=== PATIENT | male | born 1955 | race Caucasian/White ===

== ENCOUNTER 2021-08-05 18:38 | Inpatient (IN) | payer MEDICARE, OTHER ==
[~2021-08-05] VITALS: Ht 193 cm; Wt 108.0 kg
[2021-08-05] MEDS ORDERED: ONDANSETRON HCL INJ 2MG/ML 2ML 2 MG/ML VIAL IV PRN (20:45)
[2021-08-05] MEDS ORDERED: Morphine 4mg Syringe 4 MG/ML INJ IV PRN (20:45)
[2021-08-05] MEDS: ENOXAPARIN SODIUM INJ 100 MG/ML SYR SC SCH (21:00)
[2021-08-05 21:58] LABS: BASOPHILS % 0.3 % (0.0-1.0); EOSINOPHILS # (AUTO) 0.1 (0.0-0.4); EOSINOPHILS % 1.3 % (0.0-6.0); HEMATOCRIT 35.8 % (38.2-49.6); HEMOGLOBIN 11.4 g/dL (14.0-18.0); LYMPHOCYTES # (AUTO) 1.2 (1.0-3.2); LYMPHOCYTES % 14.6 % (18.0-39.1); MEAN CORPUSCULAR HEMOGLOBIN 30.4 pg (28-32); MEAN CORPUSCULAR HGB CONC 31.8 g/dL (31-35); MEAN CORPUSCULAR VOLUME 95.5 fL (81-99); MONOCYTES # (AUTO) 0.7 (0.2-0.8); MONOCYTES % 8.3 % (4.4-11.3); NEUTROPHILS # (AUTO) 5.9 (2.1-6.9); NEUTROPHILS % 75.2 % (38.7-80.0); PLATELET COUNT 156 x10e3/uL (140-360); RED BLOOD COUNT 3.75 x10e6/uL (4.3-5.7); RED CELL DISTRIBUTION WIDTH 13.1 % (11.7-14.4)
[2021-08-05 22:15] LABS: INR 1.05; PROTHROMBIN TIME 14.6 seconds (11.9-14.5)
[2021-08-05 22:20] LABS: ALBUMIN 3.4 g/dL (3.5-5.0); ALBUMIN/GLOBULIN RATIO 0.9 (0.8-2.0); ANION GAP 13.3 mmol/L (8-16); CALCIUM 8.9 mg/dL (8.4-10.2); CREATININE, SERUM 0.72 mg/dL (0.72-1.25); POTASSIUM 3.3 mmol/L (3.5-5.1)
[2021-08-06] VITALS (8 sets, daily range): BP systolic 94–145; BP diastolic 68–91
[2021-08-06 06:31] LABS: BASOPHILS % 0.4 % (0.0-1.0); EOSINOPHILS # (AUTO) 0.1 (0.0-0.4); EOSINOPHILS % 2.3 % (0.0-6.0); HEMATOCRIT 34.5 % (38.2-49.6); HEMOGLOBIN 10.9 g/dL (14.0-18.0); LYMPHOCYTES # (AUTO) 1.2 (1.0-3.2); LYMPHOCYTES % 20.4 % (18.0-39.1); MEAN CORPUSCULAR HEMOGLOBIN 30.3 pg (28-32); MEAN CORPUSCULAR HGB CONC 31.6 g/dL (31-35); MEAN CORPUSCULAR VOLUME 95.8 fL (81-99); MONOCYTES # (AUTO) 0.6 (0.2-0.8); MONOCYTES % 10.1 % (4.4-11.3); NEUTROPHILS # (AUTO) 3.8 (2.1-6.9); NEUTROPHILS % 66.3 % (38.7-80.0); PLATELET COUNT 139 x10e3/uL (140-360); RED CELL DISTRIBUTION WIDTH 12.9 % (11.7-14.4)
[2021-08-06 06:48] LABS: ANION GAP 13.2 mmol/L (8-16); CALCIUM 8.2 mg/dL (8.4-10.2); CREATININE, SERUM 0.66 mg/dL (0.72-1.25); POTASSIUM 3.2 mmol/L (3.5-5.1)
[2021-08-06] MEDS ORDERED: RYTARY ER 61.21 EACH PO (06:49)
[2021-08-06] MEDS ORDERED: ACETAMINOPHEN/CODEINE 300MG - 30MG TAB PO PRN (09:00)
[2021-08-06] MEDS ORDERED: POTASSIUM CHLORIDE 20 MEQ TAB CR PO ONE (09:00)
[2021-08-06] MEDS ORDERED: ACETAMINOPHEN 325 MG TAB PO PRN (09:00)
[2021-08-06] MEDS: ENOXAPARIN SODIUM INJ 100 MG/ML SYR SC SCH (09:04)
[2021-08-06] MEDS ORDERED: AMLODIPINE BESY10 MG PO (09:18)
[2021-08-06] MEDS ORDERED: FLOMAX0.4 MG PO (09:18)
[2021-08-06] MEDS ORDERED: NUPLAZID34 MG PO (09:18)
[2021-08-06] MEDS ORDERED: LOSARTAN POTAS100 MG PO (09:18)
[2021-08-06] MEDS ORDERED: FOLIC ACID0.4 MG PO (09:18)
[2021-08-06 09:21] LABS: % IRON SATURATION 17 % (15-50); IRON 36 ug/dL (65-175); TOTAL IRON BINDING CAPACITY 207 ug/dL (261-478); TRANSFERRIN 148 mg/dL (174-364)
[2021-08-06] MEDS: RYTARY PO SCH ×4 (11:00→22:21)
[2021-08-06] MEDS: IRON SUCROSE 100 MG in SODIUM CHLORIDE 0.9% 100 ML 100 ML IV SCH (12:25)
[2021-08-06] MEDS: APIXABAN 5 MG TABLET PO SCH (17:36)
[2021-08-07] VITALS (9 sets, daily range): BP systolic 93–157; BP diastolic 63–84
[2021-08-07] MEDS: RYTARY PO SCH ×5 (05:33→20:09)
[2021-08-07 05:37] LABS: BASOPHILS % 0.5 % (0.0-1.0); EOSINOPHILS # (AUTO) 0.1 (0.0-0.4); EOSINOPHILS % 2.3 % (0.0-6.0); HEMATOCRIT 33.2 % (38.2-49.6); HEMOGLOBIN 10.5 g/dL (14.0-18.0); MEAN CORPUSCULAR HEMOGLOBIN 30.9 pg (28-32); MEAN CORPUSCULAR HGB CONC 31.6 g/dL (31-35); MEAN CORPUSCULAR VOLUME 97.6 fL (81-99); MONOCYTES # (AUTO) 0.5 (0.2-0.8); NEUTROPHILS # (AUTO) 4.3 (2.1-6.9); NEUTROPHILS % 71.9 % (38.7-80.0); PLATELET COUNT 137 x10e3/uL (140-360); RED CELL DISTRIBUTION WIDTH 13.1 % (11.7-14.4)
[2021-08-07 05:52] LABS: ANION GAP 10.3 mmol/L (8-16); CALCIUM 8.2 mg/dL (8.4-10.2); CREATININE, SERUM 0.61 mg/dL (0.72-1.25); POTASSIUM 3.3 mmol/L (3.5-5.1)
[2021-08-07] MEDS: APIXABAN 5 MG TABLET PO SCH ×2 (09:35→17:09)
[2021-08-07] MEDS: TAMSULOSIN HCL 0.4 MG CAP PO SCH (09:35)
[2021-08-07] MEDS: FOLIC ACID 1 MG TAB PO SCH (09:36)
[2021-08-07] MEDS: IRON SUCROSE 100 MG in SODIUM CHLORIDE 0.9% 100 ML 100 ML IV SCH (09:45)
[2021-08-07] MEDS ORDERED: SODIUM CHLORIDE 0.9% 250ML 250 ML ONE (09:51)
[2021-08-07] MEDS ORDERED: ONDANSETRON HCL 4 MG ORAL DISINTEGRATING TAB PO PRN (11:00)
[2021-08-07] MEDS ORDERED: POTASSIUM CHLORIDE 10MEQ EA PO ONE (11:30)
[2021-08-07] MEDS: LOSARTAN POTASSIUM 100 MG TAB PO SCH (12:51)
[2021-08-07] MEDS: AMLODIPINE BESYLATE 10 MG TAB PO SCH (12:51)
[2021-08-07] MEDS ORDERED: LORAZEPAM 1 MG TAB PO PRN (16:15)
[2021-08-07] MEDS ORDERED: BALSAM PERU/CASTOR OIL 60 GM OINT...G. TP PRN (17:30)
[2021-08-07] MEDS ORDERED: QUETIAPINE FUMARATE 25 MG TAB PO PRN (18:00)
[2021-08-08] VITALS (10 sets, daily range): BP systolic 116–141; BP diastolic 70–88
[2021-08-08] MEDS: RYTARY PO SCH ×5 (05:36→21:11)
[2021-08-08] MEDS: FOLIC ACID 1 MG TAB PO SCH (08:34)
[2021-08-08] MEDS: APIXABAN 5 MG TABLET PO SCH ×2 (08:34→16:20)
[2021-08-08] MEDS: TAMSULOSIN HCL 0.4 MG CAP PO SCH (08:35)
[2021-08-08] MEDS: LOSARTAN POTASSIUM 100 MG TAB PO SCH (08:35)
[2021-08-08] MEDS: AMLODIPINE BESYLATE 10 MG TAB PO SCH (08:36)
[2021-08-08] MEDS: COLLAGENASE 5 GM TUBE TP SCH (08:41)
[2021-08-08] MEDS ORDERED: ELIQUIS5 MG PO (11:53)
[2021-08-08] MEDS ORDERED: NALOXONE HCL INJ 0.4 MG/ML AMP IV PRN (13:00)
[2021-08-08] MEDS ORDERED: NALOXONE HCL INJ 0.4 MG/ML AMP ONE (13:04)
[2021-08-08] MEDS ORDERED: LACTATED RINGER'S 1,000 ML INJ ONE (13:30)
[2021-08-09 04:00] VITALS: BP 131/89
[2021-08-09] MEDS: RYTARY PO SCH ×2 (05:28→08:22)
[2021-08-09 08:00] VITALS: BP 120/77
[2021-08-09 08:15] VITALS: BP 120/77
[2021-08-09] MEDS: APIXABAN 5 MG TABLET PO SCH (08:22)
[2021-08-09] MEDS: LOSARTAN POTASSIUM 100 MG TAB PO SCH (08:22)
[2021-08-09] MEDS: COLLAGENASE 5 GM TUBE TP SCH (08:22)
[2021-08-09] MEDS: AMLODIPINE BESYLATE 10 MG TAB PO SCH (08:22)
[2021-08-09] MEDS: TAMSULOSIN HCL 0.4 MG CAP PO SCH (08:22)
[2021-08-09] MEDS: FOLIC ACID 1 MG TAB PO SCH (08:22)
[2021-08-09 11:00] VITALS: BP 86/43
[2021-08-09] MEDS ORDERED: ELIQUIS5 MG PO (11:10)
== END 2021-08-09 13:26 | disposition home health service (06) | DRG 300 ==
LOC: ER 18:42 → ERHOLD 20:55 → MED/SURG 23:36
PROVIDERS: ADMIT Internal Medicine; ATTEND Internal Medicine
DX: I82.412 Acute embolism and thrombosis of left femoral vein (principal); L97.429 Non-pressure chronic ulcer of left heel and midfoot with unspecified severity; G20 Parkinson's disease; I10 Essential (primary) hypertension; N40.0 Benign prostatic hyperplasia without lower urinary tract symptoms; E87.6 Hypokalemia; G40.909 Epilepsy, unspecified, not intractable, without status epilepticus; F31.9 Bipolar disorder, unspecified; Z96.82 Presence of neurostimulator; Z88.5 Allergy status to narcotic agent; Z88.0 Allergy status to penicillin; Z20.822 Contact with and (suspected) exposure to COVID-19; L98.499 Non-pressure chronic ulcer of skin of other sites with unspecified severity
CPT/HCPCS: 36415; 80048; 80053; 83540; 83735; 84132; 84466; 85025; 85610; 93005; 93971; 94799; 97139; 99251; 99284; J1650; J1756; J2270; J2310; J2405; J7050; J7121; U0002

== ENCOUNTER 2021-08-18 13:08 | Inpatient (IN) | payer MEDICARE, OTHER ==
[~2021-08-18] VITALS: Ht 375.9 cm; Wt 108.0 kg
[~2021-08-18 13:08] MED LIST: AMLODIPINE BESY10 MG PO; ELIQUIS5 MG PO; FLOMAX0.4 MG PO; FOLIC ACID0.4 MG PO; LOSARTAN POTAS100 MG PO; NUPLAZID34 MG PO; RYTARY ER 61.21 EACH PO
[2021-08-18 14:00] LABS: BASOPHILS % 0.4 % (0.0-1.0); EOSINOPHILS % 0.4 % (0.0-6.0); HEMATOCRIT 38.3 % (38.2-49.6); HEMOGLOBIN 12.1 g/dL (14.0-18.0); LYMPHOCYTES # (AUTO) 0.9 (1.0-3.2); MEAN CORPUSCULAR HEMOGLOBIN 30.6 pg (28-32); MEAN CORPUSCULAR HGB CONC 31.6 g/dL (31-35); MEAN CORPUSCULAR VOLUME 96.7 fL (81-99); MONOCYTES # (AUTO) 0.8 (0.2-0.8); MONOCYTES % 6.7 % (4.4-11.3); NEUTROPHILS # (AUTO) 9.5 (2.1-6.9); NEUTROPHILS % 84.1 % (38.7-80.0); PLATELET COUNT 268 x10e3/uL (140-360); RED BLOOD COUNT 3.96 x10e6/uL (4.3-5.7); RED CELL DISTRIBUTION WIDTH 13.1 % (11.7-14.4)
[2021-08-18 14:17] LABS: INR 1.26; PARTIAL THROMBOPLASTIN TIME 32.9 seconds (23.8-35.5); PROTHROMBIN TIME 16.9 seconds (11.9-14.5)
[2021-08-18 14:21] LABS: ALANINE AMINOTRANSFERASE < 6 IU/L (0-55); ALBUMIN 3.1 g/dL (3.5-5.0); ALBUMIN/GLOBULIN RATIO 0.7 (0.8-2.0); ALKALINE PHOSPHATASE 109 IU/L (40-150); ANION GAP 14.5 mmol/L (8-16); BLOOD UREA NITROGEN 17 mg/dL (7-26); BUN/CREATININE RATIO 19 (6-25); CALCIUM 8.6 mg/dL (8.4-10.2); CARBON DIOXIDE 25 mmol/L (22-29); CHLORIDE 101 mmol/L (98-107); CREATININE, SERUM 0.91 mg/dL (0.72-1.25); GLUCOSE 160 mg/dL (74-118); POTASSIUM 3.5 mmol/L (3.5-5.1); SODIUM 137 mmol/L (136-145)
[2021-08-18] MEDS: HYDROCODONE/APAP 5MG-325MG TAB PO PRN (14:39)
[2021-08-18] MEDS ORDERED: SODIUM CHLORIDE FLUSH 10 ML SYR INJ PRN (17:15)
[2021-08-18] MEDS ORDERED: ONDANSETRON HCL INJ 2MG/ML 2ML 2 MG/ML VIAL IV PRN (17:15)
[2021-08-18] MEDS ORDERED: IOPAMIDOL 370 MG/ML 100 ML INFUS..BTL INJ ONE (17:24)
[2021-08-18] MEDS ORDERED: SODIUM CHLORIDE 0.9% 500ML 500 ML IV ONE (18:45)
[2021-08-18] MEDS ORDERED: ACETAMINOPHEN 325 MG TAB PO PRN (18:45)
[2021-08-18 21:00] VITALS: BP 108/68
[2021-08-18 21:21] VITALS: BP 108/68
[2021-08-18 22:00] VITALS: BP 108/68
[2021-08-18] MEDS: RYTARY PO SCH (22:29)
[2021-08-18] MEDS: APIXABAN 5 MG TABLET PO SCH (22:29)
[2021-08-19] VITALS (7 sets, daily range): BP systolic 86–108; BP diastolic 51–74
[2021-08-19] MEDS: SODIUM CHLORIDE 0.9% 1000ML 1,000 ML IV SCH ×2 (00:42→12:47)
[2021-08-19 05:26] LABS: BASOPHILS % 0.4 % (0.0-1.0); EOSINOPHILS # (AUTO) 0.1 (0.0-0.4); EOSINOPHILS % 1.1 % (0.0-6.0); HEMATOCRIT 33.5 % (38.2-49.6); HEMOGLOBIN 10.8 g/dL (14.0-18.0); LYMPHOCYTES # (AUTO) 1.3 (1.0-3.2); LYMPHOCYTES % 17.5 % (18.0-39.1); MEAN CORPUSCULAR HEMOGLOBIN 30.9 pg (28-32); MEAN CORPUSCULAR HGB CONC 32.2 g/dL (31-35); MONOCYTES # (AUTO) 0.7 (0.2-0.8); MONOCYTES % 9.1 % (4.4-11.3); NEUTROPHILS # (AUTO) 5.3 (2.1-6.9); NEUTROPHILS % 71.4 % (38.7-80.0); PLATELET COUNT 211 x10e3/uL (140-360); RED BLOOD COUNT 3.49 x10e6/uL (4.3-5.7); RED CELL DISTRIBUTION WIDTH 13.2 % (11.7-14.4)
[2021-08-19 05:47] LABS: ANION GAP 10.6 mmol/L (8-16); CREATININE, SERUM 0.71 mg/dL (0.72-1.25); POTASSIUM 3.6 mmol/L (3.5-5.1)
[2021-08-19] MEDS: RYTARY PO SCH ×5 (05:49→21:00)
[2021-08-19] MEDS: LOSARTAN POTASSIUM 100 MG TAB PO SCH (08:19)
[2021-08-19] MEDS: AMLODIPINE BESYLATE 10 MG TAB PO SCH (08:20)
[2021-08-19] MEDS: APIXABAN 5 MG TABLET PO SCH ×2 (08:21→17:21)
[2021-08-19] MEDS: TAMSULOSIN HCL 0.4 MG CAP PO SCH (08:21)
[2021-08-19] MEDS: FOLIC ACID 1 MG TAB PO SCH (08:21)
[2021-08-19] MEDS ORDERED: APIXABAN 5 MG TABLET PO SCH (09:00)
[2021-08-19] MEDS ORDERED: MAGNESIUM HYDROXIDE 30 ML UDC PO PRN (19:00)
[2021-08-19] MEDS ORDERED: MAGNESIUM HYDROXIDE 30 ML UDC PO ONE (19:00)
[2021-08-19] MEDS: DOCUSATE SODIUM 100 MG CAP PO SCH (21:00)
[2021-08-20] VITALS (9 sets, daily range): BP systolic 104–125; BP diastolic 55–74
[2021-08-20] MEDS ORDERED: SODIUM CHLORIDE 0.9% 250ML 250 ML ONE (03:18)
[2021-08-20] MEDS: RYTARY PO SCH ×5 (05:13→21:00)
[2021-08-20] MEDS: FOLIC ACID 1 MG TAB PO SCH (08:56)
[2021-08-20] MEDS: DOCUSATE SODIUM 100 MG CAP PO SCH ×3 (08:56→21:00)
[2021-08-20] MEDS: LOSARTAN POTASSIUM 100 MG TAB PO SCH (08:56)
[2021-08-20] MEDS: TAMSULOSIN HCL 0.4 MG CAP PO SCH (08:56)
[2021-08-20] MEDS: APIXABAN 5 MG TABLET PO SCH ×2 (08:56→17:19)
[2021-08-20] MEDS: AMLODIPINE BESYLATE 10 MG TAB PO SCH (08:56)
[2021-08-20] MEDS: HYDROCODONE/APAP 5MG-325MG TAB PO PRN (19:31)
[2021-08-21] VITALS (8 sets, daily range): BP systolic 95–124; BP diastolic 57–95
[2021-08-21] MEDS: HYDROCODONE/APAP 5MG-325MG TAB PO PRN ×3 (01:37→19:40)
[2021-08-21] MEDS: RYTARY PO SCH ×5 (05:19→21:00)
[2021-08-21] MEDS: LOSARTAN POTASSIUM 100 MG TAB PO SCH (09:20)
[2021-08-21] MEDS: APIXABAN 5 MG TABLET PO SCH ×2 (09:20→16:34)
[2021-08-21] MEDS: DOCUSATE SODIUM 100 MG CAP PO SCH ×3 (09:20→21:00)
[2021-08-21] MEDS: AMLODIPINE BESYLATE 10 MG TAB PO SCH (09:21)
[2021-08-21] MEDS: TAMSULOSIN HCL 0.4 MG CAP PO SCH (09:21)
[2021-08-21] MEDS: FOLIC ACID 1 MG TAB PO SCH (09:22)
[2021-08-22 03:51] VITALS: BP 124/76
[2021-08-22] MEDS: RYTARY PO SCH ×5 (05:30→21:24)
[2021-08-22 08:00] VITALS: BP 120/50
[2021-08-22] MEDS: TAMSULOSIN HCL 0.4 MG CAP PO SCH (08:45)
[2021-08-22] MEDS: LOSARTAN POTASSIUM 100 MG TAB PO SCH (08:45)
[2021-08-22] MEDS: DOCUSATE SODIUM 100 MG CAP PO SCH ×3 (08:45→21:24)
[2021-08-22] MEDS: APIXABAN 5 MG TABLET PO SCH ×2 (08:45→16:47)
[2021-08-22] MEDS: FOLIC ACID 1 MG TAB PO SCH (08:46)
[2021-08-22] MEDS: AMLODIPINE BESYLATE 10 MG TAB PO SCH (08:46)
[2021-08-22] MEDS: HYDROCODONE/APAP 5MG-325MG TAB PO PRN (08:47)
[2021-08-22 10:58] VITALS: BP 104/71
[2021-08-22] MEDS ORDERED: ONDANSETRON HCL 4 MG ORAL DISINTEGRATING TAB PO PRN (12:30)
[2021-08-22 14:50] VITALS: BP 100/71
[2021-08-22 20:00] VITALS: BP 101/61
[2021-08-23] VITALS (9 sets, daily range): BP systolic 91–109; BP diastolic 57–77
[2021-08-23] MEDS: RYTARY PO SCH ×5 (04:55→20:23)
[2021-08-23] MEDS: APIXABAN 5 MG TABLET PO SCH ×2 (08:18→16:17)
[2021-08-23] MEDS: TAMSULOSIN HCL 0.4 MG CAP PO SCH (08:18)
[2021-08-23] MEDS: DOCUSATE SODIUM 100 MG CAP PO SCH ×3 (08:18→20:22)
[2021-08-23] MEDS: FOLIC ACID 1 MG TAB PO SCH (08:18)
[2021-08-23] MEDS: HYDROCODONE/APAP 5MG-325MG TAB PO PRN (08:49)
[2021-08-23] MEDS: COLLAGENASE 5 GM TUBE TP SCH (10:24)
[2021-08-23] MEDS: LOSARTAN POTASSIUM 100 MG TAB PO SCH (16:17)
[2021-08-23] MEDS: AMLODIPINE BESYLATE 10 MG TAB PO SCH (16:17)
[2021-08-24] VITALS (7 sets, daily range): BP systolic 96–116; BP diastolic 57–67
[2021-08-24] MEDS: RYTARY PO SCH ×5 (05:08→21:08)
[2021-08-24] MEDS: DOCUSATE SODIUM 100 MG CAP PO SCH ×3 (08:14→21:08)
[2021-08-24] MEDS: LOSARTAN POTASSIUM 100 MG TAB PO SCH (08:28)
[2021-08-24] MEDS: AMLODIPINE BESYLATE 10 MG TAB PO SCH (08:28)
[2021-08-24] MEDS: TAMSULOSIN HCL 0.4 MG CAP PO SCH (08:28)
[2021-08-24] MEDS: APIXABAN 5 MG TABLET PO SCH ×2 (08:28→16:31)
[2021-08-24] MEDS: FOLIC ACID 1 MG TAB PO SCH (08:28)
[2021-08-24] MEDS: COLLAGENASE 5 GM TUBE TP SCH (09:25)
[2021-08-25] VITALS (10 sets, daily range): BP systolic 82–139; BP diastolic 58–81
[2021-08-25] MEDS: RYTARY PO SCH ×4 (06:08→17:47)
[2021-08-25] MEDS: FOLIC ACID 1 MG TAB PO SCH (10:01)
[2021-08-25] MEDS: TAMSULOSIN HCL 0.4 MG CAP PO SCH (10:01)
[2021-08-25] MEDS: LOSARTAN POTASSIUM 100 MG TAB PO SCH (10:01)
[2021-08-25] MEDS: APIXABAN 5 MG TABLET PO SCH ×2 (10:01→17:47)
[2021-08-25] MEDS: DOCUSATE SODIUM 100 MG CAP PO SCH ×3 (10:01→21:21)
[2021-08-25] MEDS: AMLODIPINE BESYLATE 10 MG TAB PO SCH (10:02)
[2021-08-25] MEDS: COLLAGENASE 5 GM TUBE TP SCH (13:00)
[2021-08-25] MEDS ORDERED: QUETIAPINE FUMARATE 25 MG TAB PO PRN (13:15)
[2021-08-25] MEDS: HYDROCODONE/APAP 5MG-325MG TAB PO PRN (14:26)
[2021-08-25] MEDS: QUETIAPINE FUMARATE 25 MG TAB PO SCH (21:21)
[2021-08-25] MEDS: CARBIDOPA/LEVODOPA 25/250 TAB PO SCH (21:21)
[2021-08-26] VITALS (8 sets, daily range): BP systolic 95–120; BP diastolic 64–89
[2021-08-26] MEDS: CARBIDOPA/LEVODOPA 25/250 TAB PO SCH ×5 (05:23→20:22)
[2021-08-26] MEDS: LOSARTAN POTASSIUM 100 MG TAB PO SCH (09:00)
[2021-08-26] MEDS: AMLODIPINE BESYLATE 10 MG TAB PO SCH (09:00)
[2021-08-26] MEDS: APIXABAN 5 MG TABLET PO SCH ×2 (09:55→17:19)
[2021-08-26] MEDS: DOCUSATE SODIUM 100 MG CAP PO SCH ×3 (09:55→20:22)
[2021-08-26] MEDS: TAMSULOSIN HCL 0.4 MG CAP PO SCH (09:56)
[2021-08-26] MEDS: FOLIC ACID 1 MG TAB PO SCH (09:56)
[2021-08-26] MEDS: COLLAGENASE 5 GM TUBE TP SCH (10:00)
[2021-08-26] MEDS: SODIUM CHLORIDE 0.9% 1000ML 1,000 ML IV SCH ×2 (10:45→23:18)
[2021-08-26] MEDS: QUETIAPINE FUMARATE 25 MG TAB PO SCH (20:22)
[2021-08-27] MEDS: CARBIDOPA/LEVODOPA 25/250 TAB PO SCH ×5 (05:20→20:59)
[2021-08-27 07:21] VITALS: BP 92/59
[2021-08-27 08:47] VITALS: BP 92/59
[2021-08-27] MEDS: AMLODIPINE BESYLATE 10 MG TAB PO SCH (09:00)
[2021-08-27] MEDS: DOCUSATE SODIUM 100 MG CAP PO SCH ×3 (09:00→20:59)
[2021-08-27] MEDS: LOSARTAN POTASSIUM 100 MG TAB PO SCH (09:00)
[2021-08-27] MEDS: SODIUM CHLORIDE 0.9% 1000ML 1,000 ML IV SCH (10:00)
[2021-08-27] MEDS: COLLAGENASE 5 GM TUBE TP SCH (10:02)
[2021-08-27] MEDS: APIXABAN 5 MG TABLET PO SCH ×2 (10:02→18:24)
[2021-08-27] MEDS: TAMSULOSIN HCL 0.4 MG CAP PO SCH (10:02)
[2021-08-27] MEDS: FOLIC ACID 1 MG TAB PO SCH (10:02)
[2021-08-27 11:16] VITALS: BP 98/61
[2021-08-27] MEDS: LOSARTAN POTASSIUM 25 MG TAB PO SCH (13:00)
[2021-08-27 15:09] VITALS: BP 98/56
[2021-08-27 20:00] VITALS: BP_SYST 132; BP_SYST 96; BP_DIAS 63; BP_DIAS 75
[2021-08-27] MEDS: QUETIAPINE FUMARATE 25 MG TAB PO SCH (20:59)
[2021-08-27 23:57] VITALS: BP 90/61
[2021-08-28] VITALS (7 sets, daily range): BP systolic 95–159; BP diastolic 60–74
[2021-08-28] MEDS: CARBIDOPA/LEVODOPA 25/250 TAB PO SCH ×8 (03:22→21:30)
[2021-08-28] MEDS: COLLAGENASE 5 GM TUBE TP SCH (06:36)
[2021-08-28] MEDS: DOCUSATE SODIUM 100 MG CAP PO SCH ×3 (08:39→21:30)
[2021-08-28] MEDS: LOSARTAN POTASSIUM 25 MG TAB PO SCH (08:41)
[2021-08-28] MEDS: FOLIC ACID 1 MG TAB PO SCH (08:42)
[2021-08-28] MEDS: APIXABAN 5 MG TABLET PO SCH ×2 (08:42→17:28)
[2021-08-28] MEDS: TAMSULOSIN HCL 0.4 MG CAP PO SCH (08:42)
[2021-08-28] MEDS ORDERED: MIDODRINE HCL 5 MG TABLET PO PRN (12:45)
[2021-08-28] MEDS: QUETIAPINE FUMARATE 25 MG TAB PO SCH (21:30)
[2021-08-29] VITALS (8 sets, daily range): BP systolic 97–129; BP diastolic 63–80
[2021-08-29] MEDS: CARBIDOPA/LEVODOPA 25/250 TAB PO SCH ×8 (00:25→21:44)
[2021-08-29] MEDS: APIXABAN 5 MG TABLET PO SCH ×2 (09:03→17:01)
[2021-08-29] MEDS: COLLAGENASE 5 GM TUBE TP SCH (09:03)
[2021-08-29] MEDS: TAMSULOSIN HCL 0.4 MG CAP PO SCH (09:03)
[2021-08-29] MEDS: FOLIC ACID 1 MG TAB PO SCH (09:03)
[2021-08-29] MEDS: DOCUSATE SODIUM 100 MG CAP PO SCH ×3 (09:03→21:44)
[2021-08-29] MEDS: QUETIAPINE FUMARATE 25 MG TAB PO SCH (21:44)
[2021-08-30] VITALS: BP 108/74
[2021-08-30] MEDS: CARBIDOPA/LEVODOPA 25/250 TAB PO SCH ×5 (00:51→12:37)
[2021-08-30 04:00] VITALS: BP 111/74
[2021-08-30 08:07] VITALS: BP 108/74
[2021-08-30] MEDS: COLLAGENASE 5 GM TUBE TP SCH (09:00)
[2021-08-30] MEDS: TAMSULOSIN HCL 0.4 MG CAP PO SCH (09:00)
[2021-08-30] MEDS: DOCUSATE SODIUM 100 MG CAP PO SCH (09:00)
[2021-08-30] MEDS: FOLIC ACID 1 MG TAB PO SCH (09:00)
[2021-08-30] MEDS: APIXABAN 5 MG TABLET PO SCH (09:00)
[2021-08-30 09:40] VITALS: BP 108/74
[2021-08-30 12:14] VITALS: BP 116/78
[2021-08-30] MEDS ORDERED: COLLAGENASE 5 GM TUBE TP SCH (21:00)
== END 2021-08-30 16:05 | DRG 641 ==
LOC: ER 13:12 → ERHOLD 17:12 → MED/SURG 20:58
PROVIDERS: ADMIT Internal Medicine; ATTEND Internal Medicine
DX: E86.0 Dehydration (principal); Z68.1 Body mass index [BMI] 19.9 or less, adult; G20 Parkinson's disease; R00.0 Tachycardia, unspecified; Z79.899 Other long term (current) drug therapy; K59.00 Constipation, unspecified; Z86.718 Personal history of other venous thrombosis and embolism; Z79.01 Long term (current) use of anticoagulants; N40.0 Benign prostatic hyperplasia without lower urinary tract symptoms; F31.9 Bipolar disorder, unspecified; I10 Essential (primary) hypertension; G89.29 Other chronic pain; R53.1 Weakness; I25.10 Atherosclerotic heart disease of native coronary artery without angina pectoris; Z74.09 Other reduced mobility; R62.7 Adult failure to thrive; L89.620 Pressure ulcer of left heel, unstageable; Z20.822 Contact with and (suspected) exposure to COVID-19; F02.80 Dementia in other diseases classified elsewhere, unspecified severity, without behavioral disturbance, psychotic disturbance, mood disturbance, and anxiety
CPT/HCPCS: 36415; 71045; 71260; 80048; 80053; 83880; 84443; 84484; 85025; 85610; 85730; 93005; 94799; 99251; 99285; J7030; J7040; J7050; Q9967